=== PATIENT | male | born 1975 | race Caucasian/White ===

== ENCOUNTER 2019-07-17 09:22 | Emergency (ER) | payer SELFPAY ==
--- NOTE | 2019-07-17 10:19 | EDM.PDOC ---
<Yulia Cortes - Last Filed: 07/17/19 11:31> ED HPI GENERAL MEDICAL PROBLEM - General Chief Complaint: Upper Extremity Injury/Pain Stated Complaint: R ARM INJURY Time Seen by Provider: 07/17/19 10:18 Source of Information: Reports: Patient History Limitations: Reports: No Limitations - History of Present Illness INITIAL COMMENTS - FREE TEXT/NARRATIVE: At approximately, 1900 last evening the patient tried to step over his dog as he was going down a flight of stairs. The patient tripped and fell down 12 stairs and injured his right elbow. Pt denies any other injuries. He is positive that he did not hit his head. Pt states that on the last step he fell backwards and landed on his elbow which was behind his back. Pt states severe pain and swelling immediately after the incident. Pt then took 8 aleve last night in order to control the pain. Pt does have a history of surgery on the right elbow as a child. - Related Data Allergies Allergy/AdvReac Type Severity Reaction Status Date / Time betamethasone Allergy Hallucinati Verified 07/17/19 09:38 [From [facility]] ons Home Meds: Home Meds Acetaminophen/HYDROcodone [[place] 325-5 MG] 1 tab PO Q6H PRN #7 tablet 05/04/19 [ Rx] Amoxicillin/Clavulanate K [Augmentin 875-125 MG] 1 tab PO BID #14 tablet [Rx] Lisinopril 10 mg PO DAILY 05/04/19 [History] Acetaminophen/HYDROcodone [[place] 325-5 MG] 1 - 2 tab PO Q6H PRN #30 tablet 07/17 [Rx] Review of Systems - Review of Systems Review Of Systems: ROS reveals no pertinent complaints other than HPI. Musculoskeletal: Reports: Arm Pain, Joint Pain (right elbow), Joint Swelling Skin: Reports: No Symptoms ED EXAM, GENERAL - Physical Exam Exam: See Below Exam Limited By: No Limitations General Appearance: Alert, WD/WN, Mild Distress Head: Atraumatic, Normocephalic Neck: Normal Inspection, Supple, Non-Tender, Full Range of Motion Peripheral Pulses: 2+: Radial (L), Radial (R) Back Exam: Normal Inspection Extremities: Joint Swelling, Arm Pain, Limited Range of Motion (right elbow) Neurological: Alert, Oriented, Normal Cognition Psychiatric: Normal Affect, Normal Mood Skin Exam: Warm, Dry, Intact, Normal Color Course - Vital Signs Last Recorded V/S: Last Vital Signs Temp 36.7 C 07/17/19 09:33 Pulse 81 07/17/19 09:33 Resp 18 07/17/19 09:33 BP 152/112 H 07/17/19 09:33 Pulse Ox 97 07/17/19 09:33 - Orders/Labs/Meds Orders: Active Orders 24 hr Category Date Time Status Durable Medical Equipment for Discharge [DME for Oth 07/17/19 12:33 Ordered Discharge] [COMM] Stat Meds: Medications Discontinued Medications Generic Name Dose Route Start Last Admin Trade Name Freq PRN Reason Stop Dose Admin Hydrocodone Bitart/Acetaminophen 1 tab 07/17/19 10:56 07/17/19 11:01 [place] 325-5 Mg PO 07/17/19 10:57 1 tab ONETIME ONE Administration Hydrocodone Bitart/Acetaminophen 1 tab 07/17/19 12:32 [place] 325-5 Mg PO 07/17/19 12:33 ONETIME ONE - Re-Assessments/Exams Free Text/Narrative Re-Assessment/Exam: 07/17/19 11:32 Right elbow x ray obtained and read by radiologist. Per Dr. Lezama report, No acute bony abnormality is identified on right elbow exam. Departure - Departure Disposition: Home, Self-Care 01 Clinical Impression: Injury of right elbow - Discharge Information Prescriptions: Acetaminophen/HYDROcodone [[place] 325-5 MG] 1 - 2 tab PO Q6H PRN #30 tablet PRN Reason: Pain Referrals: PCP,None [Primary Care Provider] - Mikey Redman MD [Physician] - Forms: ED Department Discharge Additional Instructions: Return to the emergency room with any questions problems or worsening symptoms. Wear the sling at all times. Follow-up with Dr. Redman today in one week. Use the pain pills as needed. Use regular Tylenol for milder pain however the pain pills we gave you have some Tylenol and keep your daily dose less than 4000 mg of Tylenol a day. If using the prescription pain pills you must give your self 12 hours after taking these before driving or returning to work - My Orders Last 24 Hours: My Active Orders 07/17/19 12:33 Durable Medical Equipment for Discharge [DME for Discharge] [COMM] Stat - Assessment/Plan Last 24 Hours: My Active Orders 07/17/19 12:33 Durable Medical Equipment for Discharge [DME for Discharge] [COMM] Stat <Boston Darden - Last Filed: 07/17/19 12:42> ED HPI GENERAL MEDICAL PROBLEM Right Elbow Pain Score (Numeric/FACES): 7 Past Medical History Cardiovascular History: Reports: Hypertension Musculoskeletal History: Reports: Gout Social & Family History - Tobacco Use Smoking Status *Q: Never Smoker - Caffeine Use Caffeine Use: Reports: Coffee - Recreational Drug Use Recreational Drug Use: No Course - Orders/Labs/Meds Meds: Medications Discontinued Medications Generic Name Dose Route Start Last Admin Trade Name Freq PRN Reason Stop Dose Admin Hydrocodone Bitart/Acetaminophen 1 tab 07/17/19 10:56 07/17/19 11:01 [place] 325-5 Mg PO 07/17/19 10:57 1 tab ONETIME ONE Administration Hydrocodone Bitart/Acetaminophen 1 tab 07/17/19 12:32 [place] 325-5 Mg PO 07/17/19 12:33 ONETIME ONE - Re-Assessments/Exams Free Text/Narrative Re-Assessment/Exam: 07/17/19 12:[address] Redman today who did review the x-rays and see significant degenerative changes in this elbow his recommendation is to place him in a sling and have him follow-up in the clinic in one week. Departure - Departure Time of Disposition: 12:35
[2019-07-17] MEDS ORDERED: Acetaminophen/HYDROcodone 325-5 MG Tab PO ONE ×2 (10:56→12:32)
--- NOTE | 2019-07-17 11:14 | CR ---
Right elbow: Four views of the right elbow were obtained. Comparison: No previous study. Slight deformity is noted of the radial neck most likely due to old healed radial neck fracture. Two orthopedic screws are seen within the distal humerus. No joint effusion is seen. No acute fracture or other bony abnormality is seen. Impression: 1. Findings as noted above. No acute bony abnormality is identified on right elbow exam. Diagnostic code #2
== END 2019-07-17 12:55 | disposition home or self-care (01) ==
LOC: JD.ED 09:22
DX: S59.901A Unspecified injury of right elbow, initial encounter (principal); I10 Essential (primary) hypertension; Z88.8 Allergy status to other drugs, medicaments and biological substances; Z79.899 Other long term (current) drug therapy; W10.9XXA Fall (on) (from) unspecified stairs and steps, initial encounter
CPT/HCPCS: 73080; 99283; A9270